=== PATIENT | male | born 1965 | race Caucasian/White ===

== ENCOUNTER 2019-07-29 23:30 | Emergency (ER) | payer BC ==
[~2019-07-29] VITALS: Ht 182.9 cm; Wt 90.7 kg
--- NOTE | 2019-07-29 23:49 | NUR ---
Dr Pulliam into eval patient.
[2019-07-30 00:11] LABS: *BILIRUBIN,URIN NEGATIVE (NEGATIVE); *BLOOD, URINE 3+ (NEGATIVE); *CLARITY,URINE CLEAR (CLEAR); *COLOR,URINE YELLOW (YELLOW); *KETONES,URINE NEGATIVE (NEGATIVE); LEUKOCYTE ESTERASE ,URINE NEGATIVE (NEGATIVE); NITRITE, URINE NEGATIVE (NEGATIVE); UGLUCOSE NEGATIVE (NEGATIVE)
[2019-07-30 00:18] LABS: BACTERIA,URINE NONE SEEN /HPF (NONE SEEN); RBC,URINE 50-80 /HPF (0-3); SQUAMOUS EPITHELIAL CELL,UR NONE SEEN /HPF (NONE SEEN); WBC,URINE 0-3 /HPF (0-3)
[2019-07-30] MEDS ORDERED: TAMSULOSIN HCL 0.4 MG CAP.SR.24H ONE (00:28)
[2019-07-30] MEDS ORDERED: TAMSULOSIN HCL 0.4 MG CAP.SR.24H PO ONE (00:30)
--- NOTE | 2019-07-30 01:29 | NUR ---
Patient discharged to home in stable conditon with taking patient home. Written and verbal after care instructions given. Patient verbalizes understanding of instructions. Walked out of ER with no distress noted.
[2019-07-30 01:30] VITALS: BP 135/88
== END 2019-07-30 01:31 | disposition home or self-care (01) ==
LOC: ER 23:54
DX: N20.0 Calculus of kidney (principal); R31.29 Other microscopic hematuria; R11.2 Nausea with vomiting, unspecified
CPT/HCPCS: 76770; A4663